=== PATIENT | male | born 1995 ===

== ENCOUNTER → 2020-03-26 | Outpatient (CLI) | payer OTHER | END | disposition home or self-care (01) | LOC: LAB 09:17 | PROVIDERS: ATTEND Nurse Practitioner Family | DX: Z11.3 Encounter for screening for infections with a predominantly sexual mode of transmission (principal); R21 Rash and other nonspecific skin eruption; Z72.89 Other problems related to lifestyle | CPT/HCPCS: 86592; 86695; 86696 ==

== ENCOUNTER → 2020-04-08 | Outpatient (CLI) | payer OTHER | END | disposition home or self-care (01) | LOC: LAB 13:25 | PROVIDERS: ATTEND Nurse Practitioner Family | DX: Z11.3 Encounter for screening for infections with a predominantly sexual mode of transmission (principal); Z72.51 High risk heterosexual behavior; R79.9 Abnormal finding of blood chemistry, unspecified | CPT/HCPCS: 86703 ==